=== PATIENT | female | born 1940 | race Caucasian/White ===

== ENCOUNTER 2024-08-03 18:53 | Emergency (ER) | payer MEDICARE, SELFPAY ==
[2024-08-03 18:55] VITALS: BP 158/76
--- NOTE | 2024-08-03 19:22 | EDRN ---
Pt was opening refrigerator door couple hours ago and slipped falling backwards onto her bottom then striking posterior head on floor. No loc. Pt has been applying ice to area. Pt not on blood thinners. Pt denies headache, visual disturbance,
n/v, dizziness, neck/back pain.
[2024-08-03 20:15] VITALS: BP 127/64
--- NOTE | 2024-08-03 20:20 | ED.GENMED ---
History of Present Illness
General
Chief Complaint: Head Injury
Time Seen by Provider: 08/03/24 19:14
History of Present Illness
History of Present Illness:
83-year-old female presents to the emergency department for evaluation of a closed head injury. She was reaching for the refrigerator door when she lost her balance and fell backward landing on her buttocks and striking her head. There was no loss
of consciousness. She denies complaints at this time but was brought in for evaluation. She does have a known history of myelodysplasia and has occasional thrombocytopenia but has not had her labs checked in some time
Review of Systems
Review of Systems
Allergies reviewed?: Yes
All Other Systems: ROS reviewed and negative except as documented in HPI and ROS
Phy Exam
Physical Exam
Physical Exam:
GEN: Well appearing, NAD, WDWN
HEENT: Small right parietal hematoma, no open wounds oral mucosa moist, no scleral icterus, no nasal congestion
Cardiac: Regular rate
Lung: No respiratory distress, no tachypnea
MSK: No gross deformity or injuries
Skin: Good color, no pallor or jaundice, no rashes
Neuro: AO x3; CN II-XII grossly intact. BUE strength 5/5 in all perry, sensation intact and symmetric. BLE strength 5/5 in all perry, sensation intact and symmetric
Psych: Calm, cooperative
Course
Orders/Labs/Results
Orders:
Orders
08/03/24 19:26
CT Head W/o Iv Contrast Urgent
Comment:
Reason For Exam: head trauma
Vital Signs
Initial and Last Documented VS:
Initial Vital Signs
Temp Pulse Resp BP Pulse Ox
98.1 F 66 16 158/76 99
08/03/24 18:55 08/03/24 18:55 08/03/24 18:55 08/03/24 18:55 08/03/24 18:55
Last Documented Vital Signs
Temp Pulse Resp BP Pulse Ox
98.1 F 60 16 127/64 99
08/03/24 18:55 08/03/24 20:15 08/03/24 20:15 08/03/24 20:15 08/03/24 20:15
MDM/Problems Addressed
MDM/Problems Addressed:
CT head obtained due to advanced age coupled with prior history of thrombocytopenia, fortunately CT was unremarkable. Patient able to ambulate at time of discharge
*Critical Care Note
Total Time (30-74mins, 75-104mins- exclusive of procedures): Not Applicable
ED Attending Note
-
Portions of this chart may have been created with voice recognition software.� Occasional wrong word or��sound alike� substitutions may have occurred due to the inherent limitations of voice recognition software.
Discharge Plan
Departure
Patient Disposition: Home (Routine Discharge)
Date of Disposition: 08/03/24
Time of Disposition: 20:20
Patient with high blood pressure during this ER visit?: No
Discharge Problem:
Closed head injury
Instructions: Head Injury in Adults (DC)
Interventions
Interventions:
*Risk Screen - Suicide Last Done: 08/03/24 18:54
*General Assessment Last Done: 08/03/24 19:20
*Neglect/Abuse Screening Last Done: 08/03/24 19:20
ED- Fall Risk Assessment Last Done: 08/03/24 19:20
*ED COVID-19 Vaccine History Last Done: 08/03/24 19:20
ED- Neurological Assessment Last Done: 08/03/24 19:20
ED-Skin Assessment Last Done: 08/03/24 19:20
Discharge Date and Time
Print Language: FRENCH
== END 2024-08-03 20:31 | disposition home or self-care (01) ==
LOC: EMR 18:53
PROVIDERS: EMERGENCY PHYSICIAN Emergency Medicine
DX: S00.83XA Contusion of other part of head, initial encounter (principal); W19.XXXA Unspecified fall, initial encounter; D46.9 Myelodysplastic syndrome, unspecified
CPT/HCPCS: 99285; 70450